=== PATIENT | female | born 2000 | race Caucasian/White ===

== ENCOUNTER 2023-07-03 16:57 | Emergency (ER) | payer OTHER ==
[~2023-07-03] VITALS: Ht 152.4 cm; Wt 62.0 kg
[2023-07-03 17:00] VITALS: O2SAT 98
[2023-07-03 22:53] VITALS: BP 129/80; PULSE 86; RESP 16; TEMP 98
== END 2023-07-03 22:57 | disposition home or self-care (01) ==
LOC: ER 16:57
DX: T65.91XA Toxic effect of unspecified substance, accidental (unintentional), initial encounter (principal); F19.90 Other psychoactive substance use, unspecified, uncomplicated; Y92.89 Other specified places as the place of occurrence of the external cause
CPT/HCPCS: 93005; 99283